=== PATIENT | female | born 1995 | race Caucasian/White ===

== ENCOUNTER 2019-04-25 06:33 | Observation (INO) | payer MEDICAID, OTHER ==
[~2019-04-25] VITALS: Ht 170.2 cm; Wt 67.7 kg
[2019-04-25] VITALS (8 sets, daily range): BP systolic 107–141; BP diastolic 53–80
[2019-04-25] MEDS ORDERED: dextrose 5%-normal saline 1,000 ML IV SCH (07:40)
[2019-04-25 07:49] LABS: BASOPHILS % (AUTO) 1.3 % (0-1); EOSINOPHILS # (AUTO) 0.1 X10'3 (0-0.9); EOSINOPHILS % (AUTO) 3.6 % (0-6); HEMATOCRIT 35.1 % (35.0-45.0); LYMPHOCYTES # (AUTO) 1.5 X10'3 (1.1-4.8); LYMPHOCYTES % (AUTO) 45.8 % (21-51); MEAN CORPUSCULAR HEMOGLOBIN 33.5 PG (27.0-31.0); MEAN CORPUSCULAR HGB CONC 34.1 g/dL (33.0-36.5); MEAN CORPUSCULAR VOLUME 98.3 FL (78-98); MEAN PLATELET VOLUME 7.4 FL (7.4-10.4); MONOCYTES # (AUTO) 0.4 X10'3 (0-0.9); MONOCYTES % (AUTO) 14.1 % (2-12); NEUTROPHILS # (AUTO) 1.1 X10'3 (1.8-7.7); NEUTROPHILS % (AUTO) 35.2 % (42-75); PLATELET COUNT 215 X10'3 (140-440); RED BLOOD COUNT 3.57 X10'6 (4.20-5.60); RED CELL DISTRIBUTION WIDTH 13.9 % (11.5-14.5); WHITE BLOOD COUNT 3.2 X10'3 (4.5-11.0)
[2019-04-25 08:05] LABS: ALANINE AMINOTRANSFERASE 19 U/L (12-78); ALBUMIN 3.8 G/DL (3.4-5.0); ALBUMIN/GLOBULIN RATIO 1.1 (1.1-1.5); ALKALINE PHOSPHATASE 56 IU/L (46-116); ANION GAP 10 (8-16); ASPARTATE AMINO TRANSFERASE 11 U/L (10-37); BILIRUBIN,TOTAL 0.2 MG/DL (0.1-1.0); BLOOD UREA NITROGEN 9 MG/DL (7-18); CALCIUM 8.9 MG/DL (8.5-10.1); CHLORIDE 106 MMOL/L (99-107); CREATININE 0.82 MG/DL (0.40-0.90); GLUCOSE 91 MG/DL (70-104); POTASSIUM 4.4 MMOL/L (3.5-5.1); SODIUM 141 MMOL/L (135-145); TOTAL CARBON DIOXIDE 24.6 MMOL/L (24-32); TOTAL PROTEIN 7.4 G/DL (6.4-8.2); eGFR 86 ML/MIN
[2019-04-25] MEDS ORDERED: NO HOME MEDS (08:11)
[2019-04-25] MEDS ORDERED: ringers solution, lacted 1,000 ML IV SCH ×2 (08:54→09:25)
[2019-04-25] MEDS ORDERED: famotidine 20mg tablet PO ONE (08:54)
[2019-04-25] MEDS ORDERED: meperidine/PF 25mg/ml syringe IV PRN ×3 (09:25)
[2019-04-25] MEDS ORDERED: proCHLORperazine 10 MG/2 ml inj IV PRN (09:25)
[2019-04-25] MEDS ORDERED: ondansetron/PF 4mg/2ml inj IV PRN (09:25)
[2019-04-25] MEDS ORDERED: morphine 4 MG/ML inj SYRINge IV PRN ×2 (09:25)
[2019-04-25] MEDS ORDERED: ceFAZolin 1GM/D5W- ADD-VANTAGE 50 ML IV ONE (10:00)
[2019-04-25] MEDS ORDERED: ceFAZolin 1000mg inj ONE ×2 (10:12→11:37)
[2019-04-25] MEDS ORDERED: sevoflurane 250ml liquid IH ONE (10:45)
[2019-04-25] MEDS ORDERED: fentaNYL/PF 50MCG/1 ML 2ML syringe ONE ×2 (10:54→11:40)
[2019-04-25] MEDS ORDERED: MIDAZolam 5mg/5ml vial ONE (10:54)
[2019-04-25] MEDS ORDERED: LIDOcaine 1%/PF 5ML 10 MG/ML VIAL ONE (11:37)
[2019-04-25] MEDS ORDERED: dexamethasone sod phosphate 4mg/ml inj. ONE (11:37)
[2019-04-25] MEDS ORDERED: ROPIVAcaine 0.5% (5mg/ml) 30ml vial ONE (11:37)
[2019-04-25] MEDS ORDERED: ondansetron/PF 4mg/2ml inj ONE (11:37)
[2019-04-25] MEDS ORDERED: propofol inj 20 ML IV ONE (11:37)
[2019-04-25] MEDS ORDERED: morphine 10mg/ml inj. ONE (13:15)
--- NOTE | 2019-04-25 14:48 | NUR ---
Received from OR via [facility] , accompanied by Anesthesiologist JANEY and report given by Anesthesiolgist. PATIENT WITH 20G PIV IN RIGHT UE RUNNING LR AT 100. DENIES PAIN. LEFT FOOT DRESSING IS CDI. TYESHA BANDAGE PRESENT WITH NO DRAINAGE. VSS AT THIS TIME AND PATIENT DENIES PAIN. FOOT OF [facility] CARUSOALEX. + CAP REFILL AND NO SENSATION 2' NERVE BLOCK. Addendum: 04/25/19 at 1459 by Cesar Chávez RN, RN Amended: Links added.
--- NOTE | 2019-04-25 15:58 | NUR ---
ALL DC CRITERIA HAS BEEN MET. IV TAKEN OUT WITHOUT COMPLICATIONS. ALL INSTRUCTIONS COVERED AND ALL QUESTIONS ANSWERED. DRESSINGS CDI. OUT VIA WHEELCHAIR TO PERSONAL VEHICLE WHERE PATIENT WAS SECURED IN AND DRIVEN HOME BY FAMILY. MOTHER ASSISTED PATIENT IN GETTING DRESSING. OUT WITH FATHER TO PERSONAL VEHICLE WHERE HE DROVE PATIENT HOME. MEDS CALLED TO [facility] ON [address] AND [address]. SPOKE DIRECTLY TO PHARMACIST. Addendum: 04/25/19 at 1616 by Cesar Chávez RN, RN Amended: Links added.
== END 2019-04-25 16:00 | disposition home or self-care (01) ==
LOC: ER 06:34 → PACU 07:38 → PAS IN 08:43 → UNDOADMIN 08:43 → PACU 15:58 → UNDODISIN 15:58
PROVIDERS: ADMIT Orthopaedic Surgery; ATTEND Nurse Practitioner
PROC: 0QSN04Z Reposition Right Metatarsal with Internal Fixation Device, Open Approach (ICD-10-PCS; 2019-04-25)
PROC: 0QSN04Z Reposition Right Metatarsal with Internal Fixation Device, Open Approach (ICD-10-PCS; 2019-04-25)
PROC: 0QSN04Z Reposition Right Metatarsal with Internal Fixation Device, Open Approach (ICD-10-PCS; 2019-04-25)
PROC: 3E0T3BZ Introduction of Anesthetic Agent into Peripheral Nerves and Plexi, Percutaneous Approach (ICD-10-PCS; 2019-04-25)
PROC: 0QSN04Z Reposition Right Metatarsal with Internal Fixation Device, Open Approach (ICD-10-PCS; 2019-04-25)
PROC: 0QSN04Z Reposition Right Metatarsal with Internal Fixation Device, Open Approach (ICD-10-PCS; 2019-04-25)
PROC: 0QSN04Z Reposition Right Metatarsal with Internal Fixation Device, Open Approach (ICD-10-PCS; 2019-04-25)
PROC: 0QSN04Z Reposition Right Metatarsal with Internal Fixation Device, Open Approach (ICD-10-PCS; 2019-04-25)
PROC: 0QSN04Z Reposition Right Metatarsal with Internal Fixation Device, Open Approach (ICD-10-PCS; principal; 2019-04-25 10:45)
DX: S92.311A Displaced fracture of first metatarsal bone, right foot, initial encounter for closed fracture (principal); F17.210 Nicotine dependence, cigarettes, uncomplicated; S92.321A Displaced fracture of second metatarsal bone, right foot, initial encounter for closed fracture; S92.331A Displaced fracture of third metatarsal bone, right foot, initial encounter for closed fracture; S92.341A Displaced fracture of fourth metatarsal bone, right foot, initial encounter for closed fracture; W18.39XA Other fall on same level, initial encounter; Y93.01 Activity, walking, marching and hiking; Y92.828 Other wilderness area as the place of occurrence of the external cause; Y99.8 Other external cause status; Z79.899 Other long term (current) drug therapy
CPT/HCPCS: 28485; 36415; 73630; 80053; 82948; 85025; 93005; 96365; 99285; C1713; G0378; J0690; J1100; J2250; J2270; J2405; J2704; J3010; J3370; J7042; J7120; A4215; A4618; A6449; A7000; J2795

== ENCOUNTER 2019-05-03 11:56 | Outpatient (CLI) | payer MEDICAID, OTHER ==
[~2019-05-03 11:56] MED LIST: NO HOME MEDS
== END 2019-05-03 13:08 | disposition home or self-care (01) ==
LOC: ORTHO 11:56
PROVIDERS: ATTEND Orthopaedic Surgery
DX: S92.314D Nondisplaced fracture of first metatarsal bone, right foot, subsequent encounter for fracture with routine healing (principal); S92.324D Nondisplaced fracture of second metatarsal bone, right foot, subsequent encounter for fracture with routine healing; S92.334D Nondisplaced fracture of third metatarsal bone, right foot, subsequent encounter for fracture with routine healing; S92.344D Nondisplaced fracture of fourth metatarsal bone, right foot, subsequent encounter for fracture with routine healing; W01.0XXD Fall on same level from slipping, tripping and stumbling without subsequent striking against object, subsequent encounter
CPT/HCPCS: G0463

== ENCOUNTER 2019-05-29 14:47 | Outpatient (CLI) | payer MEDICAID, OTHER | END 2019-05-29 16:15 | disposition home or self-care (01) | LOC: ORTHO 14:47 | PROVIDERS: ATTEND Orthopaedic Surgery | DX: Z47.89 Encounter for other orthopedic aftercare (principal); Z98.890 Other specified postprocedural states; F17.200 Nicotine dependence, unspecified, uncomplicated | CPT/HCPCS: 73630 ==

== ENCOUNTER 2019-06-26 15:24 | Outpatient (CLI) | payer SELFPAY | END 2019-06-26 16:15 | disposition home or self-care (01) | LOC: ORTHO 15:24 | PROVIDERS: ATTEND Orthopaedic Surgery | DX: S92.311D Displaced fracture of first metatarsal bone, right foot, subsequent encounter for fracture with routine healing (principal); S92.321D Displaced fracture of second metatarsal bone, right foot, subsequent encounter for fracture with routine healing; S92.331D Displaced fracture of third metatarsal bone, right foot, subsequent encounter for fracture with routine healing; S92.341D Displaced fracture of fourth metatarsal bone, right foot, subsequent encounter for fracture with routine healing; L84 Corns and callosities; X58.XXXD Exposure to other specified factors, subsequent encounter | CPT/HCPCS: 73630; G0463 ==

== ENCOUNTER 2019-08-14 14:45 | Outpatient (CLI) | payer OTHER | END 2019-08-14 16:30 | disposition home or self-care (01) | LOC: ORTHO 14:45 | PROVIDERS: ATTEND Orthopaedic Surgery | DX: S92.201A Fracture of unspecified tarsal bone(s) of right foot, initial encounter for closed fracture (principal); S92.334D Nondisplaced fracture of third metatarsal bone, right foot, subsequent encounter for fracture with routine healing; S92.344D Nondisplaced fracture of fourth metatarsal bone, right foot, subsequent encounter for fracture with routine healing; X58.XXXA Exposure to other specified factors, initial encounter; Y93.89 Activity, other specified; Y92.89 Other specified places as the place of occurrence of the external cause; Y99.8 Other external cause status; F17.210 Nicotine dependence, cigarettes, uncomplicated | CPT/HCPCS: 73630; G0463 ==